=== PATIENT | female | born 1950 | race Caucasian/White ===

== ENCOUNTER → 2019-06-26 07:58 | Outpatient (CLI) | payer MEDICARE, SELFPAY ==
[2019-06-26 10:29] LABS: Anion Gap 5 (5-15); BUN 9 mg/dL (7-18); BUN/Creat Ratio 12.9 RATIO (10-20); Calcium,Total 9.4 mg/dL (8.5-10.1); Chloride 105 mmol/L (98-107); Cholesterol 239 mg/dL (200); EST Glomerular Filtration Rate 89 mL/min (>60); Est Glom Filt Rate - Afr Amer 108 mL/min (>60); Glucose 87 mg/dL (74-106); High Density Lipoprotein 96 mg/dL; Potassium 4.1 mmol/L (3.5-5.1); Sodium Level 139 mmol/L (136-145); Triglycerides 95 mg/dL; Very Low Density Lipoprotein 19 mg/dL (5-40)
== END ==
PROVIDERS: PCP Family Medicine; Referring Provider Family Medicine; Visit Provider Family Medicine
DX: Z13.220 Encounter for screening for lipoid disorders (principal); E78.00 Pure hypercholesterolemia, unspecified; Z13.1 Encounter for screening for diabetes mellitus
CPT/HCPCS: 36415; 80048; 80061

== ENCOUNTER 2019-07-24 10:30 | Outpatient (RCR) | payer MEDICARE, SELFPAY ==
--- NOTE | 2019-05-22 16:37 | HP.PTEVAL ---
Patient's Visit Information UGO WEBER is a 68 year old F referred to Physical Therapy by Vinny Stewart MD with a diagnosis of cervicalgia. Date of Evaluation: 05/22/19 Physical Therapist: Parvez Sexton, COLINT, OCS, CSCS - Visit Plan Frequency: 1-2x /Week Duration: 4-6 Weeks Plan: 2x/week x 4-6 as needed for. MH, cervical rotation ROM adn mobs adn progress to strengthening of psoture/cervical. Next session if doing much better with ROM and pain, may educate on postural strength and give as HEP adn f/u after holidays. If not better, please schedule 2x/week and utilize STM, MH, mobs and ROM/strengthening - Subjective Findings: Had neck pain since summer. Has been on and off since summer. Not sure what started it. Maybe stress. Lost lots of family in the last 3 years. Neck hurts L >R on top of back of neck. Pain pills do not help. Pain is mostly constant at varying degrees. Feels like a catch sometimes. Goes to [place] every other weekend adn driving on [address] and turning neck can hurt and be difficult. Sleeps OK but it wakes her up at times. Sleeps on her side. 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 Neck pain does not hold her back but makes things frustrating. had auction at [employer] adn was baking alot for 5-6 hours in the morning and was painful after that. Does all basic ADLs . - Pain Neck pain Pain Intensity (Out of 10): 2 Pain Intensity Range: 1, 7 - Objective C/s aROM R sb 10 and L 15, rotation L 25 adn R 38, ext to 55, flexionOK, pain with rotations and R SB. UE AROM WFL adn no pain. Strength UE 4-/5 withotu pain. Sensation UEWNL to gross light touch. reflexes 2/3 bi and tri. Not overly tender except L c1/2 area slightly. - c/s compression test. - VAT within ROM limitations. - alar ligament test. repetitive motion: retraction NE on ROM. L rotation with OP: Much better ROM to 35 degrees. Towel SNAGS L rotation: increase to 55 degrees. R snags increased also to - Goals Goal 1:: Pt have 60 degrees B rotation without pain to see better on highway Goal Time Frame: 4-6 Weeks Goal 2:: Patient state pain in neck decreased by 75% to 1/10 at worst and intermittent Goal Time Frame: 4-6 Weeks Goal 3:: I appropr HEP to minimize future problems Goal Time Frame: 4-6 Weeks - Rehabilitation Potential Physical Therapy Diagnosis: cervicalgia and limited ROM Rehabilitation Potential: Good - Anticipated Interventions Patient/Client Instruction: Educate patient on: Condition, Plan of Care For the Purpose of:: To decrease pain, To increase ROM Therapeutic Exercise to Include: Strength training, Postural training, Flexibilty training, Passive ROM, Active ROM For the Purpose of:: To decrease pain, To increase ROM, To improve muscle performance and motor function, To improve ability of physical actions for home/community/work/leisure Manual Therapy Techniques to Include: Mobilization, Soft tissue mobilization For the Purpose of:: To decrease pain, To increase ROM Thermo therapy (hot pack): Yes - neck For the Purpose of:: To improve nutrient delivery to tissue Thank you for the opportunity to evaluate your patient. For Medicare and Medicare HMO plans, please review the plan of care and approve it. It will need to be FAXED BACK to us at [phone] for Medicare purposes. For Medicare only, by signing this I certify the plan of care. Please let me know if there are questions or concerns regarding this plan of care. Physician Signature: Date:
--- NOTE | 2019-07-04 13:50 | HP.PTREVAL ---
Vinny Stewart MD, It has been my pleasure to treat UGO WEBER over the last 10 visits for cervicalgia. Please see the progress note below for an update on the physical therapy plan of care! Subjective: Better slowly. Has good days where she doesn't notice a whole lot and other days that are worse. Pain this week to 2/10 with normal activity as turning head. Went to [place] this weekend and turning to look at traffic was easier. Objective/Function: 62 B rotation with some R pain. ext 58 ext. Better objectively and functionally. Plan Plan: f/u three weeks for neck oswestry, ROM check and decide on d/c vs more therapy. Goals Goal 1:: Pt have 60 degrees B rotation without pain to see better on highway Goal Time Frame: 4-6 Weeks Goal Progress: Goal Met Goal 2:: Patient state pain in neck decreased by 75% to 1/10 at worst and intermittent Goal Time Frame: 4-6 Weeks Goal Progress: Goal Met Goal 3:: I appropr HEP to minimize future problems Goal Time Frame: 4-6 Weeks Goal Progress: Goal Met Goal 4:: Maintain improvements in neck ROM and subjective with own HEP for 3 weeks Goal Time Frame: 2-4 Weeks Goal Progress: NEW GOAL Anticipated Interventions Patient/Client Instruction: Educate patient on: Condition, Plan of Care For the Purpose of:: To decrease pain, To increase ROM Therapeutic Exercise to Include: Strength training, Postural training, Flexibilty training, Passive ROM, Active ROM For the Purpose of:: To decrease pain, To increase ROM, To improve muscle performance and motor function, To improve ability of physical actions for home/community/work/leisure Manual Therapy Techniques to Include: Mobilization, Soft tissue mobilization For the Purpose of:: To decrease pain, To increase ROM Thermo therapy (hot pack): Yes - neck For the Purpose of:: To improve nutrient delivery to tissue Please do not hesitate to contact me at [phone] by phone or if you have questions or concerns regarding this new plan of care! Sincerely, Parvez Sexton, DPT, OCS, CSCS
--- NOTE | 2019-07-24 10:38 | HP.PTDCSUM ---
HP - PT D/C Summary It has been my pleasure to treat UGO WEBER under orders from Vinny Stewart MD, for the diagnosis of cervicalgia for a total of 11 visit(s). Discharge Date: 07/24/19 Please see the following information for a summary of their discharge status. - Subjective Subjective: Did not do bad. Stiff in the morning with certain weather. The annoyingness is gone. No trouble turning head in car. Sleeping well. Activities and sleep normal. Exercises going OK. No f/u with doctor schedule. - Pain Neck pain Pain Intensity (Out of 10): 0 - Overall Improvement % Improvement: 90 - Objective Objective/Function: 68 L rotation, 62 R rotation. 61 ext. Posture looks good without cues today. Pt doing well with goals and subjective adn will continue I with HEP. - Goals Goal 1:: Pt have 60 degrees B rotation without pain to see better on highway Goal Progress: Goal Met Goal 2:: Patient state pain in neck decreased by 75% to 1/10 at worst and intermittent Goal Progress: Goal Met Goal 3:: I appropr HEP to minimize future problems Goal Progress: Goal Met Goal 4:: Maintain improvements in neck ROM and subjective with own HEP for 3 weeks Goal Progress: Goal Met - Plan Plan: d/c - D/C Information Discharge Comments: Pt discharged to HEP and will contact doctor if problems reoccur. If there are questions or concerns regarding this patient's physical therapy, please feel free to call me at [phone]. Thank you for the referral of this patient. Sincerely, Parvez Sexton, DPT, OCS, CSCS
== END 2019-07-24 19:00 | disposition home or self-care (01) ==
LOC: PT 10:30
PROVIDERS: Family Provider Family Medicine; PCP Family Medicine; Referring Provider Family Medicine; Visit Provider Family Medicine
DX: M54.2 Cervicalgia (principal)
CPT/HCPCS: 97110; 97140; 97162; 97164; 97530

== ENCOUNTER → 2020-06-19 07:01 | Outpatient (CLI) | payer MEDICARE, SELFPAY ==
[2020-06-19 10:22] LABS: ALB/GLOB Ratio 1.1 RATIO (0.9-2.4); AST(SGOT) 14 U/L (15-37); Alanine Aminotransfer ALT/SGPT 24 U/L (13-56); Albumin, Serum 4.1 g/dL (3.2-5.0); Alkaline Phosphatase 90 U/L (45-117); Anion Gap 3 (5-15); BUN 11 mg/dL (7-18); BUN/Creat Ratio 15.3 RATIO (10-20); Calcium,Total 9.2 mg/dL (8.5-10.1); Chloride 104 mmol/L (98-107); Cholesterol 232 mg/dL (200); Creatinine, Serum 0.72 mg/dL (0.55-1.02); EST Glomerular Filtration Rate 86 mL/min (>60); Est Glom Filt Rate - Afr Amer 104 mL/min (>60); Globulin 3.7 g/dL (2.2-4.2); Glucose 84 mg/dL (74-106); High Density Lipoprotein 101 mg/dL; Potassium 3.8 mmol/L (3.5-5.1); Protein, Total 7.8 g/dL (6.4-8.2); Sodium Level 138 mmol/L (136-145); Triglycerides 104 mg/dL; Very Low Density Lipoprotein 21 mg/dL (5-40)
== END ==
PROVIDERS: PCP Family Medicine; Referring Provider Family Medicine; Visit Provider Family Medicine
DX: E78.00 Pure hypercholesterolemia, unspecified (principal)
CPT/HCPCS: 36415; 80053; 80061

== ENCOUNTER → 2020-07-24 07:06 | Outpatient (CLI) | payer MEDICARE, SELFPAY ==
[2020-07-17 14:46] VITALS: BMI 22.8
[2020-07-24 10:23] LABS: Absolute Lymphocyte Count 1.26 X10^3/uL (0.83-4.51); Absolute Neutrophil Count 2.7 X10^3/uL (2.0-7.7); Basophil# 0.07 X10^3/uL; Basophil% 1.4 % (0-1); Eosinophils% 9.9 % (0-5); Hematocrit 40.5 % (37-47); Hemoglobin 12.7 g/dL (12.0-15.0); Lymphocyte # 1.26 X10^3/ul (4.0); Mean Corp Hgb Conc 31.4 g/dL (32-36); Mean Corpuscular Hgb 30.5 pg (27.0-32.0); Mean Corpuscular Volume 97.1 fL (81-99); Monocyte# 0.48 X10^3/uL; Monocyte% 9.5 % (0-10); NRBC Flagged by Analyzer 0 % (0-5); Neutrophil # 2.73 X10^3/uL (2.7-7.7); Platelet Count 382 K/mm3 (150-450); RBC Distribution Width CV 13.2 % (11.6-14.6); Red Blood Count 4.17 M/mm3 (4.2-5.4); White Blood Count 5.1 K/mm3 (4.4-11.0)
[2020-07-24 11:05] LABS: Thyroid Stim Hormone (TSH) 1.39 uIU/mL (0.358-3.74)
== END ==
PROVIDERS: PCP Family Medicine; Referring Provider Internal Medicine Cardiovascular Disease; Visit Provider Internal Medicine Cardiovascular Disease
DX: I49.9 Cardiac arrhythmia, unspecified (principal); I47.1 Supraventricular tachycardia; I49.49 Other premature depolarization
CPT/HCPCS: 36415; 84443; 85025

== ENCOUNTER → 2020-08-01 06:42 | Outpatient (CLI) | payer MEDICARE, SELFPAY ==
[2020-07-17 14:46] VITALS: BMI 22.8
--- NOTE | 2020-08-01 06:46 | ECHOD_ITS ---
Reason For Study: Arrhythmia Procedure This was a 2D Doppler, Color Flow transthoracic echocardiogram. Exam performed in department. Left Ventricle Normal LV size. Left ventricular systolic function is normal. The estimated ejection fraction is 65 %. No evidence for diastolic dysfunction. No regional wall motion abnormalities noted. Right Ventricle Normal RV size. Normal systolic function. Atria Normal left atrium. Normal right atrium. No doppler evidence for ASD. Mitral Valve There is no mitral annular calcification. Normal mitral valve. Mild (1+) mitral valve insufficiency. Tricuspid Valve Normal tricuspid valve. Mild (1+) tricuspid valve insufficiency. Right ventricular systolic pressure estimated to be 30 mmHg. Aortic Valve Trisinus/trileaflet aortic valve. Normal aortic valve. Pulmonic Valve The pulmonic valve is not well visualized. Great Vessels The aortic root is not well visualized. Pericardium/Pleural No pericardial effusion. MMode/2D Measurements & Calculations LVIDd: 3.5 cm IVSd: 1.1 cm LA dimension: 2.6 cm LVIDs: 2.5 cm LVPWd: 1.0 cm RVDd: 3.0 cm FS: 28.2 % LAV(MOD-bp): 35.6 ml LA A4 area: 14.4 cm2 RA A4 area: 9.2 cm2 LAV(MOD-bp) Indexed: 22.4 ml/m2 LAV(MOD-sp2): 35.6 ml LAV(MOD-sp4): 34.9 ml Time Measurements MV dec time: 0.16 sec Doppler Measurements & Calculations MV E max armin: 61.7 cm/sec Lat Peak E' Armin: 9.9 cm/sec Med Peak E' Armin: 8.3 cm/sec MV A max armin: 98.4 cm/sec E/E' lat: 6.2 E/E' med: 7.4 MV E/A: 0.63 Ao V2 max: 137.8 cm/sec LV V1 max: 105.7 cm/sec PA V2 max: 107.9 cm/sec Ao max P.6 mmHg LV V1 max P.5 mmHg TR max armin: 260.5 cm/sec TR max P.1 mmHg Interpretation Summary Left ventricular systolic function is normal. The estimated ejection fraction is 65 %. Mild (1+) mitral valve insufficiency. Mild (1+) tricuspid valve insufficiency. Right ventricular systolic pressure estimated to be 30 mmHg. No evidence for diastolic dysfunction. Ordering Physician: Martin Silva Referring Physician: Vinny Stewart Performed By: Luís Jacob RCS
--- NOTE | 2020-08-01 08:51 | STRESSREP ---
Stress Test Report Date: 08-01-2020 Procedure: Exercise tolerance test/imaging study Indications: Cardiac dysrhythmia; PACs; PVCs; PSVT; PVT Consent: Per the patient Procedure: The patient exercised on a Jon protocol for 8 minutes completing Stage II and 2 minutes of Stage III achieving a peak heart rate of 164 bpm (108% predicted maximal heart rate) with a peak blood pressure 172/78 mmHg and a peak MET capacity of 9 METs. The baseline ECG demonstrated sinus rhythm. The peak exercise ECG demonstrated no obvious ECG changes. There were occasional PACs and PVCs during exercise and recovery. The functional capacity was considered good. There was no complaint of chest discomfort during exercise or recovery. The examination was discontinued secondary to dyspnea. Impression: 1. Technically adequate (percent predicted maximal heart rate greater than 85%) exercise tolerance test 2. Peak exercise ECG with no obvious ECG changes 3. There were occasional PACs and PVCs during exercise and recovery 4. Nuclear images pending Myocardial perfusion imaging study: Technique: The patient was injected with 11.2 mCi of technetium 99m Cardiolite and subsequently rest SPECT Cardiolite nuclear imaging was obtained in the horizontal long, vertical long, and short axis views. The patient exercised on a Jon protocol for 8 minutes completing Stage II and 2 minutes of Stage III achieving a peak heart rate of 164 bpm (108% predicted maximal heart rate) with a peak blood pressure 172/78 mmHg and a peak MET capacity of 9 METs. The patient was injected with 32.4 mCi of technetium 99m Cardiolite and subsequently stress SPECT Cardiolite nuclear imaging was obtained in the horizontal long, vertical long, and short axis views. A gated Cardiolite study at peak stress was obtained. Interpretation: Rest and stress SPECT Cardiolite nuclear imaging status post realignment, normalization, and attenuation correction, demonstrates the appearance of relative uniform tracer uptake and myocardial perfusion appearing within normal limits. There is end systolic thickening and brightening. The gated Cardiolite study demonstrates myocardial thickening and inward wall motion. The reported LVEF is 67%. Impression: 1. Rest and stress SPECT Cardiolite nuclear imaging demonstrate relative uniform tracer uptake and myocardial perfusion appearing within normal limits. 2. The gated Cardiolite study reports an LVEF of 67%. This note was generated with [employer] software. It may contain incorrect words, spelling, and punctuation that were not noted in checking the note before signing.
== END ==
PROVIDERS: PCP Family Medicine; Referring Provider Internal Medicine Cardiovascular Disease; Visit Provider Internal Medicine Cardiovascular Disease
DX: I49.9 Cardiac arrhythmia, unspecified (principal); I47.1 Supraventricular tachycardia; I49.49 Other premature depolarization; R94.31 Abnormal electrocardiogram [ECG] [EKG]
CPT/HCPCS: 78452; 93017; 93306; A9500; A4216

== ENCOUNTER → 2021-05-18 07:05 | Outpatient (CLI) | payer MEDICARE, SELFPAY ==
[2021-05-18 10:17] LABS: Absolute Lymphocyte Count 1.28 X10^3/uL (0.83-4.51); Absolute Neutrophil Count 4.8 X10^3/uL (2.0-7.7); Basophil# 0.05 X10^3/uL; Basophil% 0.7 % (0-1); Eosinophil# 0.67 X10^3/uL; Eosinophils% 8.8 % (0-5); Hematocrit 40.5 % (37-47); Lymphocyte # 1.28 X10^3/ul (0.83-4.51); Lymphocyte % 16.8 % (19-41); Mean Corp Hgb Conc 32.1 g/dL (32-36); Mean Corpuscular Hgb 31.2 pg (27.0-32.0); Mean Corpuscular Volume 97.1 fL (81-99); Monocyte# 0.81 X10^3/uL; Monocyte% 10.6 % (0-10); NRBC Flagged by Analyzer 0 % (0-5); Neutrophil # 4.81 X10^3/uL (2.7-7.7); Neutrophil % 62.8 % (47-70); Platelet Count 352 K/mm3 (150-450); RBC Distribution Width CV 12.9 % (11.6-14.6); RBC Distribution Width SD 46.6 fl (35.1-43.9); Red Blood Count 4.17 M/mm3 (4.2-5.4); White Blood Count 7.6 K/mm3 (4.4-11.0)
[2021-05-18 10:37] LABS: AST(SGOT) 18 U/L (15-37); Alanine Aminotransfer ALT/SGPT 20 U/L (13-56); Albumin, Serum 3.8 g/dL (3.2-5.0); Alkaline Phosphatase 86 U/L (45-117); Anion Gap 7 (5-15); BUN 10 mg/dL (7-18); BUN/Creat Ratio 14.1 RATIO (10-20); Calcium,Total 9.5 mg/dL (8.5-10.1); Chloride 103 mmol/L (98-107); Cholesterol 218 mg/dL (200); Creatinine, Serum 0.71 mg/dL (0.55-1.02); EST Glomerular Filtration Rate 86 mL/min (>60); Est Glom Filt Rate - Afr Amer 105 mL/min (>60); Globulin 3.9 g/dL (2.2-4.2); Glucose 92 mg/dL (74-106); High Density Lipoprotein 105 mg/dL; Potassium 3.9 mmol/L (3.5-5.1); Protein, Total 7.7 g/dL (6.4-8.2); Sodium Level 139 mmol/L (136-145); Triglycerides 88 mg/dL; Very Low Density Lipoprotein 18 mg/dL (5-40)
== END ==
PROVIDERS: PCP Family Medicine; Referring Provider Family Medicine; Visit Provider Family Medicine
DX: E78.00 Pure hypercholesterolemia, unspecified (principal)
CPT/HCPCS: 36415; 80053; 80061; 85025

== ENCOUNTER → 2021-05-20 11:00 | Outpatient (CLI) | payer MEDICARE, SELFPAY ==
[2021-05-20 13:05] LABS: Vitamin D,25 Hydroxy 28.9 ng/mL
== END ==
PROVIDERS: PCP Family Medicine; Referring Provider Family Medicine; Visit Provider Family Medicine
DX: M81.0 Age-related osteoporosis without current pathological fracture (principal)
CPT/HCPCS: 36415; 82306

== ENCOUNTER 2022-02-12 06:13 | Day surgery (SDC) | payer MEDICARE, SELFPAY ==
[2022-02-12] VITALS (7 sets, daily range): BP systolic 100–148; BP diastolic 64–85; PULSE 68–107; RESP 16–106; TEMP 36.7–37.4; O2SAT 99–100; BMI 21.9
[2022-02-12] MEDS: Lactated Ringers 1,000 ML 15 ML IV (06:20)
--- NOTE | 2022-02-12 07:20 | H&P.OPEN ---
HPI - General HPI Narrative UGO WEBER, is a 71 F who presents for screening colonoscopy. Her last colonoscopy was 10 years ago and was normal. The patient denies any abdominal pain or blood in the stool. [facility] Medical History (Updated 02/09/22 @ 11:44 by Geri Ledezma) Arthritis Asthma Cardiology follow-up encounter Easy bruising Ectopic cardiac beats History of echocardiogram History of stress test Hypercholesteremia Migraine headache Non-smoker PSVT (paroxysmal supraventricular tachycardia) Ventricular arrhythmia Wears glasses Home Medications albuterol sulfate 90 mcg/actuation aerosol inhaler (ProAir HFA) 2 puff inhalation Q4H PRN SOB 07/15/20 [History Last Taken Unknown] fluticasone 100 mcg-salmeterol 50 mcg/dose blistr powdr for inhalation (Advair Diskus) 1 inh inhalation BID 07/15/20 [History Last Taken Unknown] multivitamin 1 tab PO DAILY 07/15/20 [History Last Taken Unknown] aspirin 81 mg tablet,delayed release 81 mg PO DAILY #1 TAB 07/17/20 [Rx Last Taken Unknown] cholecalciferol (vitamin D3) 25 mcg (1,000 unit) tablet 50 mcg PO DAILY 07/17/20 [History Last Taken Unknown] alendronate 70 mg tablet 70 mg PO QWEEK 02/02/22 [History Last Taken Unknown] magnesium oxide 500 mg tablet 500 mg PO DAILY 02/02/22 [History Last Taken Unknown] Allergy/AdvReac Type Severity Reaction Status Date / Time prednisone Allergy Unknown Rash Verified 02/09/22 11:36 Family History (Updated 02/02/22 @ 08:04 by Roxann Dill) Mother Heart disease Hypertension Uncle Heart disease Father Diabetes Cardiac pacemaker in situ Pancreatitis Surgical History (Updated 02/02/22 @ 08:04 by Roxann Dill) History of breast biopsy History of colonoscopy History of tonsillectomy and adenoidectomy History of tubal ligation Social History Smoking Status: Never smoker alcohol intake: never substance use type: does not use caffeine: Yes Type: coffee Number of servings: 8 Past Medical/Surgical History Planned Operation Planned Operative Procedure/s: OA COLONOSCOPY Previous Hospitalizations/Surgeries HX Hospitalizations: No Any Problems With Anesthesia: No You/Your Family Experience Fever (Hyperthermia) With Anes: No Cholinesterase deficiency: No Cardiovascular Hx Hypertension: No Respiratory Hx Sleep Apnea: No Hx Respiratory Tract Infection/Cold (presently): No Do You Snore Loudly (louder than talking or can be heard): No Do You Often Feel Tired/ Fatigued/ Sleepy Dring Daytime?: No Has Anyone Observed You Stop Breathing During Sleep?: No Result (for STOP score): Negative Smoking Status: Never smoker Neurological Does patient have nerve stimulator: No Reproduction : No Miscellaneous Recent Exposure to Contagious Disease: No Allergies prednisone Allergy (Unknown, Verified 02/09/22 11:36) Rash Discharge Is Pt Admitted From a [facility], or a Shelter: No After D/C, Where Do you Plan to Go: Return Home Vital Signs Vital Signs Vital Signs: 02/12/22 06:35 02/12/22 06:35 Temperature 99.3 F H Temperature Source Temporal Pulse Rate 83 Respiratory Rate 20 H Respiratory Pattern Normal Blood Pressure 148/83 H Blood Pressure Mean 104 Blood Pressure Source Monitor Blood Pressure Position Semi-Fowlers Blood Pressure Location Left Arm Pulse Ox 100 Oxygen Delivery Method Room Air Weight Weight: 124 lb 1.924 oz Body Mass Index (BMI) 21.9 Physical Exam Const alert and oriented x3 Resp normal respiratory effort and normal air movement Cardio regular rate and regular rhythm GI soft to palpation, non-tender and non-distended Assessment & Plan Assessment/Plan (1) Encounter for screening for malignant neoplasm of colon: PLAN: I explained endoscopy in detail to the patient. I explained the risks including but not limited to stroke or heart attack with anesthesia, perforation of the GI tract, bleeding, infection. I explained that any of these could necessitate further emergency surgery. The patient understands and all questions were answered sufficiently. The patient wishes to proceed with procedure. Cody Russ MD Pager: [facility] [address] [place] [address], [address] [place] [address] Office: Surgery Risks - Colonoscopy Risks Include but are not Limited To: Risks include but are not limited to: Bleeding, perforation requiring further surgery, inability to complete colonoscopy requiring barium enema.
--- NOTE | 2022-02-12 07:43 | OP.COLON_ITS ---
Patient Name: Gretchen Duran Procedure Date: 02/12/2022 7:12 AM Date of : 1950 Age: 71 Procedure: Colonoscopy Indications: Screening for colorectal malignant neoplasm Providers: Cody Russ MD Medicines: Monitored Anesthesia Care Patient Profile: This is a 71 year old female. Refer to note in patient chart for documentation of history and physical. Last Colonoscopy: 10 years ago. Complications: No immediate complications. Procedure: Pre-Anesthesia Assessment: - Prior to the procedure, a History and Physical was performed, and patient medications and allergies were reviewed. The patient's tolerance of previous anesthesia was also reviewed. The risks and benefits of the procedure and the sedation options and risks were discussed with the patient. All questions were answered, and informed consent was obtained. Prior Anticoagulants: The patient has taken no previous anticoagulant or antiplatelet agents. After reviewing the risks and benefits, the patient was deemed in satisfactory condition to undergo the procedure. After I obtained informed consent, the scope was passed under direct vision. Throughout the procedure, the patient's blood pressure, pulse, and oxygen saturations were monitored continuously. The was introduced through the anus and advanced to the cecum, identified by appendiceal orifice and ileocecal valve. The colonoscopy was performed without difficulty. The patient tolerated the procedure well. The quality of the bowel preparation was good. Scope In: 7:24:12 AM Scope Withdrawal Time 0 hours 4 minutes 23 seconds Scope Out: 7:37:35 AM Total Procedure Duration Time 0 hours 13 minutes 23 seconds Findings: The entire examined colon appeared normal on direct and retroflexion views. Impression: - The entire examined colon is normal on direct and retroflexion views. - No specimens collected. Recommendation: - Discharge patient to home. - Resume previous diet. - Continue present medications. - Repeat colonoscopy is not recommended due to current age (66 years or older) for screening purposes. Procedure Code(s): --- Professional --- G0121, Colorectal cancer screening; colonoscopy on individual not meeting criteria for high risk Diagnosis Code(s): --- Professional --- Z12.11, Encounter for screening for malignant neoplasm of colon CPT copyright 2017 [place] [employer]. All rights reserved. The codes documented in this report are preliminary and upon hydraulic technician review may be revised to meet current compliance requirements. Cody Russ MD 02/12/2022 7:43:31 AM This report has been signed electronically. Number of Addenda: 0 Note Initiated On: 02/12/2022 7:12 AM
--- NOTE | 2022-02-12 07:44 | OP.CCLET_ITS ---
02/12/2022 Zuleika Pond [address] [place] [address] Re : Colonoscopy procedure for Gretchen Duran Dear Dr. Pond This procedure was performed on Saturday, February 12, 2022. My impressions and recommendations are as follows: Impressions : - The entire examined colon is normal on direct and retroflexion views. - No specimens collected. Recommendations : - Discharge patient to home. - Resume previous diet. - Continue present medications. - Repeat colonoscopy is not recommended due to current age (66 years or older) for screening purposes. My findings are described in the full procedure note, which is enclosed. If I can be of further assistance, please feel free to contact me at Doctor phone number(s): , Work: . Sincerely, Cody Russ MD 02/12/2022 7:43:31 AM This report has been signed electronically.
== END 2022-02-12 08:21 | disposition home or self-care (01) ==
LOC: EN 06:16 → AC 06:19
PROVIDERS: Visit Provider Surgery
PROC: 0DJD8ZZ Inspection of Lower Intestinal Tract, Via Natural or Artificial Opening Endoscopic (ICD-10-PCS; CPT 45378; principal; 2022-02-12 07:25)
DX: Z12.11 Encounter for screening for malignant neoplasm of colon (principal); Z79.82 Long term (current) use of aspirin; Z79.899 Other long term (current) drug therapy; J45.909 Unspecified asthma, uncomplicated
CPT/HCPCS: G0121; J7120; J2405

== ENCOUNTER → 2023-01-24 | Outpatient (CLI) | payer MEDICARE, SELFPAY ==
[2023-01-24 10:41] LABS: Vitamin D,25 Hydroxy 57.2 ng/mL
[2023-01-24 10:50] LABS: ALB/GLOB Ratio 1.1 RATIO (0.9-2.4); AST(SGOT) 15 U/L (15-37); Alanine Aminotransfer ALT/SGPT 19 U/L (13-56); Albumin, Serum 3.9 g/dL (3.2-5.0); Alkaline Phosphatase 63 U/L (45-117); Anion Gap 6 (5-15); BUN 11 mg/dL (7-18); BUN/Creat Ratio 14.8 RATIO (10-20); Calcium,Total 9.1 mg/dL (8.5-10.1); Chloride 105 mmol/L (98-107); Cholesterol 238 mg/dL (200); Creatinine, Serum 0.74 mg/dL (0.55-1.02); EST Glomerular Filtration Rate 82 mL/min (>60); Est Glom Filt Rate - Afr Amer 99 mL/min (>60); Globulin 3.7 g/dL (2.2-4.2); Glucose 93 mg/dL (74-106); High Density Lipoprotein 114 mg/dL; Potassium 3.9 mmol/L (3.5-5.1); Protein, Total 7.6 g/dL (6.4-8.2); Sodium Level 139 mmol/L (136-145); Triglycerides 77 mg/dL; Very Low Density Lipoprotein 15 mg/dL (5-40)
== END | disposition home or self-care (01) ==
PROVIDERS: PCP Family Medicine; Referring Provider Family Medicine; Visit Provider Family Medicine
DX: E55.9 Vitamin D deficiency, unspecified (principal); E78.00 Pure hypercholesterolemia, unspecified
CPT/HCPCS: 36415; 80053; 80061; 82306

== ENCOUNTER → 2023-04-26 | Outpatient (CLI) | payer MEDICARE, SELFPAY ==
--- NOTE | 2023-04-26 09:51 | BD_ITS ---
STUDY: DUAL ENERGY X-RAY ABSORPTIOMETRY / DXA REASON FOR EXAM: Female, 72 years old. M810 TECHNIQUE: Bone Mineral Density (BMD) measurements of lumbar spine and bilateral hips were obtained. COMPARISON: None. FINDINGS: Lumbar Spine (L1-L4): g/cm2 (0.880) / T-score (-1.5) / Z-score (0.7) Findings are suggestive of osteopenia with a low fracture risk. Left Femur Total: g/cm2 (0.690) / T-score (-2.1) / Z-score (-0.5) Left Femoral Neck: g/cm2 (0.557) / T-score (-2.6) / Z-score (-0.7) Right Femur Total: g/cm2 (0.686) / T-score (-2.1) / Z-score (-0.5) Right Femoral Neck: g/cm2 (0.576) / T-score (-2.5) / Z-score (-0.6) BD/Dexa Bone Density Study IMPRESSION: The patient is considered osteoporotic as outlined below according to World [employer] Organization (WHO) criteria with a high fracture risk. Reference Information: The T-score is the number of standard deviations above or below the standard which is normal for young adults at their peak bone mineral density. The World Health Organization (WHO) interprets the T-scores as follows: Above -1 Normal bone density Between -1 and -2.5 Osteopenia Equal to / or below -2.5 Osteoporosis As a practical clinical guideline, osteopenia may be graded as follows: Mild -1 through -1.5 Moderate -1.6 through -2.0 Severe -2.1 through -2.4 The Z-score is the number of standard deviations above or below age-matched controls. A Z-score of less than -1.5 would be considered abnormal. References: 1. NIH Osteoporosis and Related Bone Diseases www osteo.org 2. International Society for Clinical Densitometry www iscd.org 3. National Osteoporosis Foundation www nof.org Electronically Signed: Christopher Waldron MD at 8:02 EST ,
== END | disposition home or self-care (01) ==
PROVIDERS: PCP Family Medicine; Referring Provider Family Medicine; Visit Provider Family Medicine
DX: M81.0 Age-related osteoporosis without current pathological fracture (principal)
CPT/HCPCS: 77080

== ENCOUNTER 2023-07-19 09:30 | Outpatient (RCR) | payer MEDICARE, SELFPAY ==
--- NOTE | 2023-06-21 08:40 | HP.PTEVAL ---
Patient's Visit Information Visit Information Visit Information: UGO WEBER is a 72 year old F referred to Physical Therapy by Sunni Cook DO with a diagnosis of osteoporosis. Date of Evaluation: 06/21/23 Physical Therapist: LISA Delacruz Visit Plan Frequency: 2x /Week Duration: 4 Weeks Plan: 2X/ week for 4 weeks for weightbearing exercises and strengthening of UE/LE and balance exercise program for home. HEP: standing heel and toe raises, wall slides, and supine long body stretch Subjective Subjective: Pt is a walker and this summer she started to experience some pain on the outside of L knee and it is not getting better. She is going to see another Dr about her knee. She has osteoporosis and had another bone density test and she had improved in some areas but other areas she did not improve. She recommended PT for strengthening and weight bearing activities. She walks about an hour a day outside. She is going to therapy at [facility] for her L knee and started that last week and just doing table knee exercises. She only has knee pain when walking. She has no issues on stairs. She walks everyday. Pain L knee pain: Pain Intensity (Out of 10): 0 Objective Objective: Gait: walks fast with normal gait pattern FGA 30/30 LE MMT: R hip flex 8.9 and L 9.2 R knee ext 22.5 and L 19.8 R knee flex 10.1 and L 10.6 R hip abd 13.5 and L 13.5 R hip ext 10.6 and L 13 UE MMT flex/ abd 4-/5 Decrease cervical rotation B Able to do a full ROM bridge Able to walk on heels and toes without signs of weakness but some unsteadiness Balance/Special Test Scores Functional Gait Assessment Score: 30 % Disability: 0 Lower Extremity Functional Score: 72 Goals Goal 1:: I HEP for weightbearing UE/LE strength and balance Goal Time Frame: 2-4 Weeks Goal 2:: Be able to complete 2X 10 standing heel and toe raises without UE support for balance Goal Time Frame: 2-4 Weeks Rehabilitation Potential Rehabilitation Potential: Good Anticipated Interventions Patient/Client Instruction: Educate patient on: Condition and Plan of Care For the Purpose of:: To improve nutrient delivery to tissue, To improve muscle performance and motor function, To improve ability to perform ADL's, To increase tolerance to activity/condition/position, To improve performance and independence with ADL's, To improve gait and locomotor functions, To improve health of tissue, To improve balance and To improve safety with gait Therapeutic Exercise to Include: Strength training, Balance training, Coordination, Body mechanics, Postural training, Active ROM, Dynamic Lumbar Stabilization and Scapular Strength/Stabilization For the Purpose of:: To improve nutrient delivery to tissue, To improve muscle performance and motor function, To improve ability to perform ADL's, To increase tolerance to activity/condition/position, To improve performance and independence with ADL's, To improve gait and locomotor functions, To improve balance and To improve safety with gait Text: Thank you for the opportunity to evaluate your patient. For Medicare and Medicare HMO plans, please review the plan of care and approve it. It will need to be FAXED BACK to us at [phone] for Medicare purposes. For Medicare only, by signing this I certify the plan of care. Please let me know if there are questions or concerns regarding this plan of care. Physician Signature: Date:
--- NOTE | 2023-07-19 10:48 | HP.PTDCSUM ---
Discharge Summary D/C summary: It has been my pleasure to treat UGO WEBER referred by Sunni Cook DO, with the diagnosis of osteoporosis for a total of 5 visit(s). Discharge Date: 07/19/23 Please see the following information for a summary of their discharge status. Subjective Subjective: She has the knowledge of how to do her exercises and even went for a walk without her knees bothering her. Pain L knee pain: Pain Intensity (Out of 10): 0 Overall Improvement % Improvement: 95 Objective Objective/Function: Pt did well with additional HEP Goals Goal 1:: I HEP for weightbearing UE/LE strength and balance Goal Progress: Goal Met Goal 2:: Be able to complete 2X 10 standing heel and toe raises without UE support for balance Goal Progress: Goal Met Plan Plan: DC PT to HEP D/C Information Discharge Comments: DC PT to HEP d/c sentence: If there are questions or concerns regarding this patient's physical therapy, please feel free to call me at [phone]. Thank you for the referral of this patient. Sincerely, Chana Robertson, MPT Balance/Gait/Functional tests Balance/Special Test Scores Functional Gait Assessment Score: 30 % Disability: 0 Lower Extremity Functional Score: 72 Quick DASH Score: 9.0900 Improvement % Improvement: 95
== END 2023-07-19 11:10 | disposition home or self-care (01) ==
LOC: PT 09:30
PROVIDERS: PCP Family Medicine; Referring Provider Family Medicine; Visit Provider Family Medicine
DX: M81.0 Age-related osteoporosis without current pathological fracture (principal)
CPT/HCPCS: 97110; 97161

== ENCOUNTER → 2024-06-28 | Outpatient (CLI) | payer MEDICARE, SELFPAY ==
[2024-06-28 10:13] LABS: Absolute Lymphocyte Count 1.22 X10^3/uL (0.83-4.51); Absolute Neutrophil Count 5.9 X10^3/uL (2.0-7.7); Basophil# 0.09 X10^3/uL; Eosinophil# 0.95 X10^3/uL; Eosinophils% 10.8 % (0-5); Hematocrit 40.8 % (37-47); Hemoglobin 13.2 g/dL (12.0-15.0); Lymphocyte # 1.22 X10^3/ul (0.83-4.51); Lymphocyte % 13.9 % (19-41); Mean Corp Hgb Conc 32.4 g/dL (32-36); Mean Corpuscular Hgb 31.4 pg (27.0-32.0); Mean Corpuscular Volume 96.9 fL (81-99); Mean Platelet Vol. 9.4 fl (6.2-12.0); Monocyte# 0.58 X10^3/uL; Monocyte% 6.6 % (0-10); NRBC Flagged by Analyzer 0 % (0-5); Neutrophil # 5.89 X10^3/uL (2.7-7.7); Neutrophil % 67.4 % (47-70); Platelet Count 421 K/mm3 (150-450); RBC Distribution Width CV 12.8 % (11.6-14.6); RBC Distribution Width SD 45.4 fl (35.1-43.9); Red Blood Count 4.21 M/mm3 (4.2-5.4); White Blood Count 8.8 K/mm3 (4.4-11.0)
[2024-06-28 10:34] LABS: Vitamin D,25 Hydroxy 55.4 ng/mL
[2024-06-28 11:03] LABS: ALB/GLOB Ratio 0.9 RATIO (0.9-2.4); AST(SGOT) 16 U/L (15-37); Alanine Aminotransfer ALT/SGPT 18 U/L (13-56); Albumin, Serum 3.8 g/dL (3.2-5.0); Alkaline Phosphatase 73 U/L (45-117); Anion Gap 7 (5-15); BUN 9 mg/dL (7-18); BUN/Creat Ratio 10.9 RATIO (10-20); Calcium,Total 9.3 mg/dL (8.5-10.1); Chloride 103 mmol/L (98-107); Cholesterol 259 mg/dL (200); Creatinine, Serum 0.82 mg/dL (0.55-1.02); EST Glomerular Filtration Rate 72 mL/min (>60); Est Glom Filt Rate - Afr Amer 88 mL/min (>60); Globulin 4.2 g/dL (2.2-4.2); Glucose 93 mg/dL (74-106); High Density Lipoprotein 117 mg/dL; Potassium 3.8 mmol/L (3.5-5.1); Sodium Level 138 mmol/L (136-145); Triglycerides 69 mg/dL; Very Low Density Lipoprotein 14 mg/dL (5-40)
== END | disposition home or self-care (01) ==
LOC: MTLAB 07:03
PROVIDERS: PCP Family Medicine; Referring Provider Family Medicine; Visit Provider Family Medicine
DX: E55.9 Vitamin D deficiency, unspecified (principal); R03.0 Elevated blood-pressure reading, without diagnosis of hypertension
CPT/HCPCS: 36415; 80053; 80061; 82306; 85025

== ENCOUNTER → 2025-05-07 | Outpatient (CLI) | payer MEDICARE, SELFPAY ==
--- NOTE | 2025-05-07 07:30 | BD_ITS ---
PROCEDURE: DEXA BONE DENSITY STUDY 05/07/2025 REASON FOR EXAM: F, age 74 y/o . Postmenopausal. TECHNIQUE: Procedure Code: BDDBD Modality: DX Procedure: DEXA BONE DENSITY STUDY COMPARISON: April 26, 2023. FINDINGS: BMD and T-SCORES Lumbar spine: 0.887 g/cm2, T-score -1.5 Levels: L1 through L4 Change from prior: Improvement of 0.8%. Left femoral neck: 0.565 g/cm2, T-score -2.6 Femoral neck comparison data not recommended for monitoring change. Left total hip: 0.707 g/cm2, T-score -1.9 Change from prior: Improvement of 2.5%. Right femoral neck: 0.584 g/cm2, T-score -2.4 Femoral neck comparison data not recommended for monitoring change. Right total hip: 0.708 g/cm2, T-score -1.9 Change from prior: Improvement of 2.3%. The World Health Organization has defined the following categories based on bone density: Normal bone density: T-score equal to or greater than -1.0 Osteopenia: T-score between -1.0 and -2.5 Osteoporosis: T-score equal to or less than -2.5 FRAX (or Comparable) Fracture Risk Assessment: 10 Year Probability of Fracture: Major Osteoporotic Fracture: 22% Hip Fracture: 7.7% (Note: FRAX is not to be reported in setting of normal range bone density, osteoporosis on DEXA, known history of osteoporosis, prior osteoporotic hip or vertebral fracture, or for any patient undergoing pharmacological treatment for bone loss.) The National Osteoporosis Foundation (NOF) recommends pharmacological treatment for patients with a FRAX 10-year risk of 3% or higher for a hip fracture, or 20% or higher for a major osteoporotic fracture, to prevent osteoporosis and reduce fracture risk. The patient does meet the pharmacological treatment recommendations for prevention of osteoporosis. BD/Dexa Bone Density Study IMPRESSION: OSTEOPOROSIS. Recommend follow-up as clinically warranted. Reading Location: [id number]
== END | disposition home or self-care (01) ==
LOC: OPBD 07:19
PROVIDERS: PCP Family Medicine
DX: M81.0 Age-related osteoporosis without current pathological fracture (principal)
CPT/HCPCS: 77080